=== PATIENT | female | born 1955 | race Asian ===

== ENCOUNTER 2018-01-22 16:25 | Emergency (ER) | payer SELFPAY ==
[~2018-01-22 16:25] MED LIST: ISOVUE-370 76%-LOCM 1 ML ONE
[2018-01-22 17:57] LABS: #Eosinphils 0.1 thou/uL (0.0-0.7); #Lymphocytes 1.3 thou/uL (1.20-3.40); #Monocytes 0.2 thou/uL (0.11-0.59); #Neutrophils 1.7 thou/uL (1.40-6.50); %Basophils 0.6 % (0.0-1.0); %Eosinophils 3.9 % (0.0-10.0); %Monocytes 5.8 % (0.0-10.0); %Neutrophils 50.8 % (42.0-75.0); Hemoglobin 12.6 g/dL (12.0-16.0); Mean Corpuscular HGB CONC 33.5 g/dL (32.0-36.0); Mean Corpuscular Hemoglobin 32.2 pg (27.0-31.0); Mean Corpuscular Volume 96.3 fL (78.0-98.0); Mean Platelet Volume 6.8 fL (7.4-10.4); Platelet Count 152 thou/uL (130-400); RBC Distribution Width 11.7 % (11.5-14.5); White Blood Cell (WBC) Count 3.3 thou/uL (4.8-10.8)
--- NOTE | 2018-01-22 18:06 | RAD ---
FRONTAL RADIOGRAPH CHEST: 01/22/2018 HISTORY: Abdominal pain for six months. COMPARISON: None. FINDINGS: There is no pneumothorax, pleural fluid, lobar consolidation, or alveolar edema. The heart and media stinal contours are unremarkable. IMPRESSION: No acute findings. POS: MATHEUS
[2018-01-22 18:07] LABS: Bacteria/HPF None Seen HPF (None Seen); Bilirubin Negative (Negative); Blood, Urine Small (Negative); Clarity CLEAR (Clear); Glucose, Urine (Dipstick) Negative (Negative); Hyaline Casts/LPF 0-3 HYALINE CAST LPF (0-3 Hyaline); Leukocyte Large (Negative); Nitrite Negative (Negative); Pathc Cast-AUWi Flag 0.43 (0-2.49); Protein, Urine (Dipstick) Negative (Neg-Trace); RBC/HPF None Seen HPF (0-3); Specific Gravity, Urine 1.007 (1.002-1.036); Squamous Epithelial None Seen HPF (0-3); Urobilinogen 0.2 mg/dL (0.2-1.0); pH, Urine 6.5 (5.0-9.0)
[2018-01-22 18:17] LABS: ALT (SGPT) 15 U/L (8-55); AST (SGOT) 22 U/L (5-34); Albumin 4.3 g/dL (3.4-4.8); Alkaline Phosphatase 53 U/L (40-150); Anion Gap 12 mmol/L (10-20); BUN (Urea Nitrogen) 21 mg/dL (9.8-20.1); Bilirubin, Total 0.5 mg/dL (0.2-1.2); CK (CPK) 88 U/L (29-168); Calc. Creatinine Clearance 0 mL/min (70-130); Calcium 9.5 mg/dL (7.8-10.44); Carbon Dioxide 29 mmol/L (23-31); Chloride 103 mmol/L (98-107); Estimated GFR-MDRD 81; Glucose 94 mg/dL (80-115); Lipase 17 U/L (8-78); Potassium 3.5 mmol/L (3.5-5.1); Protein, Total 7.3 g/dL (6.0-8.3); Sodium 140 mmol/L (136-145)
[2018-01-22 18:30] LABS: CKMB 1.4 ng/mL (0-6.6); Troponin I Less than 0.010 ng/mL (< 0.028)
--- NOTE | 2018-01-22 20:39 | CT ---
CTA THORAX WITH CONTRAST CTA ABDOMEN WITH CONTRAST: (Computed Tomographic Angiography, chest (noncoronary) with contrast material, and image post process ing) (Computed Tomographic Angiography, abdomen with contrast material, and image post processing) HISTORY: A 62-year-old female with epigastric abdominal pain, radiating to the back, with associated dyspnea a nd abdominal bruit. TECHNIQUE: IV injection of iodinated contrast: Isovue-[id number] 100 mL. Arterial phase bolus chasing technique. Scan acquisition from top of top of aortic arch to iliac crests. 3D MIP reconstructions. FINDINGS: There is no dissection, aneurysm, or rupture of the thoracic aorta or the abdominal aorta. No compre ssion fracture of the thoracic spine or lumbar spine. No destructive osseous lesion involving the ri bs. The lungs are essentially clear. No pleural effusion or pneumothorax. No cardiomegaly, pericar dial effusion, mediastinal lymphadenopathy, or hilar lymphadenopathy. No pulmonary thromboembolism. No aortic rupture. No hydronephrosis. Within the limitations of an arterial phase only scan, no gr oss pathology identified involving the retroperitoneum, pancreas, adrenals, kidneys, liver, or spleen , except for a small, subcentimeter hypodensity between the left and right lobes or the liver, which is probably a cyst. No free fluid identified within the abdominal cavity. No small bowel dilation. Apparent mural thickening of the stomach. IMPRESSION: 1. No aortic dissection or aneurysm. 2. Apparent mural thickening of the stomach. This could be due to incomplete distention, or it coul d represent a gastritis. 3. No other potential pathology identified. silvia[] POS: NIK
== END 2018-01-22 20:13 | disposition home or self-care (01) ==
LOC: ERS 16:25
DX: N39.0 Urinary tract infection, site not specified (principal)
CPT/HCPCS: 71045; 71275; 80053; 81003; 81015; 82550; 82553; 83690; 84484; 85025; 93005; 94760

== ENCOUNTER 2022-03-04 14:36 | Outpatient (CLI) | payer MEDICARE | END 2022-03-04 14:37 | disposition home or self-care (01) | LOC: BICMAMMO 14:36 | PROVIDERS: ATTEND Family Medicine | DX: Z12.31 Encounter for screening mammogram for malignant neoplasm of breast (principal) | CPT/HCPCS: 77063; 77067 ==

== ENCOUNTER 2023-03-20 08:23 | Outpatient (CLI) | payer MEDICARE | END 2023-03-20 08:24 | disposition home or self-care (01) | LOC: ULT 08:23 | PROVIDERS: ATTEND Family Medicine | DX: R19.06 Epigastric swelling, mass or lump (principal) | CPT/HCPCS: 76700 ==

== ENCOUNTER 2023-12-19 11:46 | Outpatient (CLI) | payer MEDICARE | END 2023-12-19 11:47 | disposition home or self-care (01) | LOC: BICMAMMO 11:46 | PROVIDERS: ATTEND Family Medicine | DX: Z12.31 Encounter for screening mammogram for malignant neoplasm of breast (principal) | CPT/HCPCS: 77063; 77067 ==